=== PATIENT | female | born 1940 | race Caucasian/White ===

== ENCOUNTER 2017-04-16 16:30 | Emergency (ER) | payer MEDICARE, BC ==
--- NOTE | 2017-04-16 17:09 | EDM.PDOC ---
ED HPI GENERAL MEDICAL PROBLEM - General Chief Complaint: General Stated Complaint: Nose Bleed Time Seen by Provider: 04/16/17 16:55 Source of Information: Reports: Patient History Limitations: Reports: No Limitations - History of Present Illness INITIAL COMMENTS - FREE TEXT/NARRATIVE: Patient is a 76-year-old female who presents to the emergency department today from the retirement with a complaint of nose bleeding. 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 Patient denies any trauma, chest pain, shortness of breath, headache, or fever. Onset: Today Onset Date: 04/16/17 Duration: Hour(s): Location: Reports: Face Severity: Mild Improves with: Reports: None Worsens with: Reports: None Context: Denies: Trauma Associated Symptoms: Reports: No Other Symptoms - Related Data Allergies Allergy/AdvReac Type Severity Reaction Status Date / Time metformin Allergy Cannot Verified 04/16/17 16:54 Remember perfume Allergy Cannot Verified 04/16/17 16:54 Remember smoke Allergy Cannot Uncoded 04/16/17 16:54 Remember ED ROS GENERAL - Review of Systems Review Of Systems: ROS reveals no pertinent complaints other than HPI. Constitutional: Reports: No Symptoms HEENT: Reports: Nosebleed Respiratory: Reports: No Symptoms Cardiovascular: Reports: No Symptoms Endocrine: Reports: No Symptoms GI/Abdominal: Reports: No Symptoms : Reports: No Symptoms Musculoskeletal: Reports: No Symptoms Skin: Reports: No Symptoms Neurological: Reports: No Symptoms Psychiatric: Reports: No Symptoms Hematologic/Lymphatic: Reports: No Symptoms Immunologic: Reports: No Symptoms ED EXAM, GENERAL - Physical Exam Exam: See Below Exam Limited By: No Limitations General Appearance: Alert, WD/WN, No Apparent Distress Eye Exam: Bilateral Eye: Normal Inspection Nose: Other (Active bleeding from right nare, anterior). No: Nasal Deformity Throat/Mouth: Normal Inspection Head: Atraumatic, Normocephalic Neck: Normal Inspection, Supple, Non-Tender Respiratory/Chest: No Respiratory Distress, Lungs Clear Neurological: Alert, Oriented, Normal Cognition Psychiatric: Normal Affect, Normal Mood Skin Exam: Warm, Dry, Intact, Normal Color, No Rash Lymphatic: No Adenopathy Course - Vital Signs Last Recorded V/S: Last Vital Signs Temp 98.9 F 04/16/17 16:49 Pulse 63 04/16/17 16:49 Resp 18 04/16/17 16:49 BP 123/54 L 04/16/17 16:49 Pulse Ox 98 04/16/17 16:49 - Re-Assessments/Exams Free Text/Narrative Re-Assessment/Exam: 04/16/17 17:11 Patient afebrile, nontoxic appearing. Vital signs stable. Hemostasis obtained with Afrin and non-petroleum jelly cotton ball application. Departure - Departure Time of Disposition: 17:13 Disposition: Home, Self-Care 01 Condition: Good Clinical Impression: Epistaxis not due to trauma - Discharge Information Instructions: Nosebleed, [id number] Referrals: Araceli Omalley MD [Primary Care Provider] - Additional Instructions: Follow-up with PCP in one to 2 days. Return to emergency department sooner if symptoms continue. - Assessment/Plan Assessment:: Epistaxis Plan: Follow-up with PCP
[2017-04-16] MEDS ORDERED: Oxymetazoline 0.05% Nasal Spray 15 ML Bottle NAS ONE (17:48)
== END 2017-04-16 17:30 | disposition home or self-care (01) ==
LOC: KA.ED 16:30
DX: R04.0 Epistaxis (principal); Z88.8 Allergy status to other drugs, medicaments and biological substances; Z91.09 Other allergy status, other than to drugs and biological substances; Z91.048 Other nonmedicinal substance allergy status
CPT/HCPCS: 30901; 99283

== ENCOUNTER 2017-07-31 15:42 | Inpatient (IN) | payer MEDICARE, BC ==
[2017-07-31] MEDS ORDERED: Sodium Chloride 0.9% 5 ML Syringe FLUSH PRN (15:55)
[2017-07-31] MEDS ORDERED: Potassium Bicarbonate/Potassium Chloride 25 MEQ Tab.Eff PO ONE ×2 (17:30→22:00)
[2017-07-31] MEDS: Sodium Chloride 0.9% with KCl 1,000 ML IV SCH (19:19)
[2017-07-31] MEDS ORDERED: Insulin Aspart 100 Units/ML 3 ML Pen SUBCUT ONE (21:05)
[2017-07-31] MEDS ORDERED: Insulin Detemir 100 Units/ML 3 ML Pen SUBCUT ONE (21:06)
[2017-08-01 08:19] LABS: CHLORIDE,CL 117 mmol/L (98-115); SODIUM,NA 146 mmol/L (136-145)
[2017-08-01] MEDS: Sodium Chloride 0.9% with KCl 1,000 ML IV SCH (09:02)
[2017-08-01] MEDS ORDERED: Acetaminophen 325 MG Tab PO PRN (09:47)
[2017-08-01] MEDS ORDERED: Atropine/Diphenoxylate 0.025-2.5 MG Tab PO PRN (09:47)
[2017-08-01] MEDS ORDERED: Loperamide 2 MG Cap PO PRN (10:00)
[2017-08-01] MEDS ORDERED: Nitroglycerin 0.4 MG Tab.SL SL SCH (10:00)
[2017-08-01] MEDS ORDERED: Sodium Chloride 0.9% with KCl 1,000 ML IV SCH (10:00)
--- NOTE | 2017-08-01 10:56 | PCM.PN ---
- General Info Date of Service: 08/01/17 Admission Dx/Problem (Free Text): This patient was admitted primarily because of diarrhea weakness and hypokalemia. Functional Status: Reports: Tolerating Diet - Patient Data Vitals - Most Recent: Last Vital Signs Temp 99.0 F 08/01/17 07:00 Pulse 68 08/01/17 07:00 Resp 16 08/01/17 07:00 BP 147/59 H 08/01/17 07:00 Pulse Ox 98 08/01/17 07:00 Weight - Most Recent: 137 lb 1.6 oz I&O - Last 24 Hours: Intake & Output 07/31/17 08/01/17 08/01/17 22:59 06:59 14:59 Intake Total 917 1419 Output Total 500 500 Balance 417 919 Lab Results Last 24 Hours: Laboratory Results - last 24 hr 07/31/17 07/31/17 08/01/17 Range/Units 17:54 20:52 07:20 Sodium 146 H (136-145) mmol/L Potassium 3.3 (3.3-5.3) mmol/L Chloride 117 H (98-115) mmol/L Carbon Dioxide 15.4 L (21.0-32.0) mmol/L BUN 38 H (6-25) mg/dL Creatinine 0.80 (0.51-1.17) mg/dL Est Cr Clr Drug Dosing 50.85 mL/min Estimated GFR (MDRD) > 60 mL/min Glucose 132 H (70-110) mg/dL POC Glucose 306 H 460 H (74-106) mg/dl Calcium 7.6 L (8.7-10.3) mg/dL 08/01/17 Range/Units 07:40 Sodium (136-145) mmol/L Potassium (3.3-5.3) mmol/L Chloride (98-115) mmol/L Carbon Dioxide (21.0-32.0) mmol/L BUN (6-25) mg/dL Creatinine (0.51-1.17) mg/dL Est Cr Clr Drug Dosing mL/min Estimated GFR (MDRD) mL/min Glucose (70-110) mg/dL POC Glucose 131 H (74-106) mg/dl Calcium (8.7-10.3) mg/dL Med Orders - Current: Current Medications Acetaminophen (Tylenol) 650 mg PO Q6H PRN PRN Reason: Pain Aspirin (Halfprin) 81 mg PO DAILY [facility] Atorvastatin Calcium (Lipitor) 40 mg PO DAILY@1900 [facility] Cholecalciferol (Vitamin D3) 2,000 units PO DAILY [facility] Clopidogrel Bisulfate (Plavix) 75 mg PO DAILY [facility] Diphenoxylate HCl/Atropine (Lomotil 0.025-2.5 Mg) 1 tab PO QID PRN PRN Reason: Diarrhea Famotidine (Pepcid) 20 mg PO DAILY [facility] Gabapentin (Neurontin) 300 mg PO TIDMEALS [facility] Potassium Chloride/Sodium Chloride (Normal Saline With 40 Meq Kcl) 1,000 mls @ 50 mls/hr IV ASDIRECTED [facility] Insulin Aspart (Novolog) 0 unit SUBCUT ASDIRECTED [facility] Insulin Detemir (Levemir) 10 unit SUBCUT BID [facility] Loperamide HCl (Imodium) 2 mg PO ASDIRECTED PRN PRN Reason: diarrhea Multivitamins/Minerals (Centrum) 1 tab PO DAILY [facility] Nitroglycerin (Nitrostat) 0.4 mg SL ASDIRECTED [facility] Dulaglutide [ (Trulicity] 0.75 Mg) 0.75 each SUBCUT Th [facility] Risperidone (Risperidal) 0.25 mg PO BID [facility] Sertraline HCl (Zoloft) 100 mg PO DAILY [facility] Sodium Chloride (Syrex Flush) 5 ml FLUSH Q8HR PRN PRN Reason: Keep Vein Open Zinc Sulfate (Zincate) 220 mg PO DAILY [facility] Discontinued Medications Potassium Chloride/Sodium Chloride (Normal Saline With 40 Meq Kcl) 1,000 mls @ 75 mls/hr IV ASDIRECTED [facility] Last Admin: 08/01/17 09:02 Dose: 75 mls/hr Insulin Aspart (Novolog) 8 unit SUBCUT ONETIME ONE Stop: 07/31/17 21:06 Last Admin: 07/31/17 21:19 Dose: 8 units Insulin Detemir (Levemir) 10 unit SUBCUT ONETIME ONE Stop: 07/31/17 21:07 Last Admin: 07/31/17 21:20 Dose: 10 units Potassium Bicarb/Potassium Chloride (Potassium Chloride, Effervescent) 25 meq PO ONETIME ONE Stop: 07/31/17 17:31 Last Admin: 07/31/17 19:18 Dose: 25 meq Potassium Bicarb/Potassium Chloride (Potassium Chloride, Effervescent) 25 meq PO ONETIME ONE Stop: 07/31/17 22:01 Last Admin: 07/31/17 21:15 Dose: 25 meq - Problem List Review Problem List Initiated/Reviewed/Updated: Yes - My Orders Last 24 Hours: My Active Orders 08/01/17 09:45 Insulin Detemir [Levemir] 10 unit SUBCUT BID 08/01/17 09:47 Acetaminophen [Tylenol] 650 mg PO Q6H PRN Atropine/Diphenoxylate [Lomotil 0.025-2.5 MG] 1 tab PO QID PRN 08/01/17 10:00 Insulin Aspart [NovoLOG] 0 unit SUBCUT ASDIRECTED Loperamide [Imodium] 2 mg PO ASDIRECTED PRN Nitroglycerin [Nitrostat] 0.4 mg SL ASDIRECTED Sodium Chloride 0.9% with KCl [Normal Saline with 40 mEq KCl] 1,000 ml IV ASDIRECTED 08/01/17 12:00 Gabapentin [Neurontin] 300 mg PO TIDMEALS 08/01/17 19:00 atorvaSTATin [Lipitor] 40 mg PO DAILY@1900 08/01/17 21:00 risperiDONE [RisperiDAL] 0.25 mg PO BID 08/02/17 05:15 COMPREHENSIVE METABOLIC PN,CMP [CHEM] AM 08/02/17 09:00 Aspirin [Halfprin] 81 mg PO DAILY Cholecalciferol (Vitamin D3) [Vitamin D3] 2,000 units PO DAILY Clopidogrel [Plavix] 75 mg PO DAILY FA/Lycopene/Lut/MV,Ca,Iron,Min [Centrum] 1 tab PO DAILY Famotidine [Pepcid] 20 mg PO DAILY Sertraline [Zoloft] 100 mg PO DAILY Zinc Sulfate [Zincate] 220 mg PO DAILY 08/07/17 09:00 Patient's Own Medication [Ptom] 0.75 each SUBCUT Th - Assessment Assessment:: This patient was seen today for follow-up. Yesterday she was admitted because of chronic and acute diarrhea and hypokalemia. Her potassium yesterday was 3.1. Today's 3.3. Serum sodium is still high at 146. Intake output has been documented. Intake was 2336 output was 1000 mL. Her BUN is still high at 58. Creatinine is normal at 0.8. She has definitely improved. Will continue with the current management. We will decrease her IV fluids to 50 mL an hour. Diabetes: We have changed her insulins and 211 Suad 10 units twice a day. Also kept her on the sliding scale low-dose. Blood sugar this morning was 131. We'll keep a close eye on this situation. Intake & Output 07/30/17 07/31/17 08/01/17 08/02/17 06:59 06:59 06:59 06:59 Intake Total 2336 Output Total 1000 Balance 1336 Laboratory Results - last 24 hr 07/31/17 07/31/17 08/01/17 Range/Units 17:54 20:52 07:20 Sodium 146 H (136-145) mmol/L Potassium 3.3 (3.3-5.3) mmol/L Chloride 117 H (98-115) mmol/L Carbon Dioxide 15.4 L (21.0-32.0) mmol/L BUN 38 H (6-25) mg/dL Creatinine 0.80 (0.51-1.17) mg/dL Est Cr Clr Drug Dosing 50.85 mL/min Estimated GFR (MDRD) > 60 mL/min Glucose 132 H (70-110) mg/dL POC Glucose 306 H 460 H (74-106) mg/dl Calcium 7.6 L (8.7-10.3) mg/dL 08/01/17 Range/Units 07:40 Sodium (136-145) mmol/L Potassium (3.3-5.3) mmol/L Chloride (98-115) mmol/L Carbon Dioxide (21.0-32.0) mmol/L BUN (6-25) mg/dL Creatinine (0.51-1.17) mg/dL Est Cr Clr Drug Dosing mL/min Estimated GFR (MDRD) mL/min Glucose (70-110) mg/dL POC Glucose 131 H (74-106) mg/dl Calcium (8.7-10.3) mg/dL Medications: Acetaminophen (Tylenol) 650 mg PO Q6H PRN PRN Reason: Pain Aspirin (Halfprin) 81 mg PO DAILY [facility] Atorvastatin Calcium (Lipitor) 40 mg PO DAILY@1900 [facility] Cholecalciferol (Vitamin D3) 2,000 units PO DAILY [facility] Clopidogrel Bisulfate (Plavix) 75 mg PO DAILY [facility] Diphenoxylate HCl/Atropine (Lomotil 0.025-2.5 Mg) 1 tab PO QID PRN PRN Reason: Diarrhea Famotidine (Pepcid) 20 mg PO DAILY [facility] Gabapentin (Neurontin) 300 mg PO TIDMEALS [facility] Potassium Chloride/Sodium Chloride (Normal Saline With 40 Meq Kcl) 1,000 mls @ 50 mls/hr IV ASDIRECTED [facility] Insulin Aspart (Novolog) 0 unit SUBCUT ASDIRECTED [facility] Insulin Detemir (Levemir) 10 unit SUBCUT BID [facility] Loperamide HCl (Imodium) 2 mg PO ASDIRECTED PRN PRN Reason: diarrhea Multivitamins/Minerals (Centrum) 1 tab PO DAILY [facility] Nitroglycerin (Nitrostat) 0.4 mg SL ASDIRECTED [facility] Dulaglutide [ (Trulicity] 0.75 Mg) 0.75 each SUBCUT Th [facility] Risperidone (Risperidal) 0.25 mg PO BID [facility] Sertraline HCl (Zoloft) 100 mg PO DAILY [facility] Sodium Chloride (Syrex Flush) 5 ml FLUSH Q8HR PRN PRN Reason: Keep Vein Open Zinc Sulfate (Zincate) 220 mg PO DAILY [facility] Discontinued Medications Potassium Chloride/Sodium Chloride (Normal Saline With 40 Meq Kcl) 1,000 mls @ 75 mls/hr IV ASDIRECTED [facility] Last Admin: 08/01/17 09:02 Dose: 75 mls/hr Infusions/Titrations Document 08/01/17 09:02 MLE (Rec: 08/01/17 09:02 MLE [id number]) Dosing IV Rate 75 Increase/Decrease Started/Running Cummulative Dose Not Applicable Intake Container Volume 1,000 Total Intake (Rx) 1,000 Volume Adjustment/Waste 0 Infusion: 08/01/17 08:39 Dose: 75 mls/hr Infusions/Titrations Document 08/01/17 08:39 MLE (Rec: 08/01/17 09:02 MLE [id number]) Dosing IV Rate 75 Increase/Decrease Infused Cummulative Dose Not Applicable Intake IV Intake 1,000 Cumulative Intake 1,000 Container Volume 0 Total Intake (Rx) 1,000 Volume Adjustment/Waste 0 Admin: 07/31/17 19:19 Dose: 75 mls/hr Infusions/Titrations Document 07/31/17 19:19 SMV (Rec: 07/31/17 19:19 SMV [id number]) Dosing IV Rate 75 Increase/Decrease Started Cummulative Dose Not Applicable Intake Container Volume 1,000 Volume Adjustment/Waste 0 Insulin Aspart (Novolog) 8 unit SUBCUT ONETIME ONE Stop: 07/31/17 21:06 Last Admin: 07/31/17 21:19 Dose: 8 units MAR SQ Injection Site Document 07/31/17 21:19 AI (Rec: 07/31/17 21:20 AI [id number]) MAR Subcutaneous Injection Site Start Date 07/31/17 Start Time 21:20 End Date 07/31/17 End Time 21:20 Medication Injection Site Left Abdomen Vital Signs Temp 99.0 F 08/01/17 07:00 Pulse 68 08/01/17 07:00 Resp 16 08/01/17 07:00 BP 147/59 H 08/01/17 07:00 Pulse Ox 98 08/01/17 07:00 Intake & Output 07/31/17 08/01/17 08/01/17 22:59 06:59 14:59 Intake Total 917 1419 Output Total 500 500 Balance 417 919 Intake: Intake, Oral Amount 770 800 Oral Fluids 770 800 Intake, IV Amount 147 619 Normal Saline with 40 mEq 147 619 KCl 1,000 ML @ 75 mls/hr IV ASDIRECTED [facility] Rx#: [id number] Output: Output, Catheter Amount 500 500 Perdomo 500 500 Other: Dinner Percent Consumed 25 HS Snack Percent Consumed 100 Total, Intake Amount 770 800 Total, Output Amount 500 500 Insulin Detemir (Levemir) 10 unit SUBCUT ONETIME ONE Stop: 07/31/17 21:07 Last Admin: 07/31/17 21:20 Dose: 10 units MAR SQ Injection Site Document 07/31/17 21:20 AI (Rec: 07/31/17 21:21 AI [id number]) MAR Subcutaneous Injection Site Start Date 07/31/17 Start Time 21:20 End Date 07/31/17 End Time 21:20 Medication Injection Site Left Abdomen Potassium Bicarb/Potassium Chloride (Potassium Chloride, Effervescent) 25 meq PO ONETIME ONE Stop: 07/31/17 17:31 Last Admin: 07/31/17 19:18 Dose: 25 meq Potassium Bicarb/Potassium Chloride (Potassium Chloride, Effervescent) 25 meq PO ONETIME ONE Stop: 07/31/17 22:01 Last Admin: 07/31/17 21:15 Dose: 25 meq
[2017-08-01] MEDS: Insulin Detemir 100 Units/ML 3 ML Pen SUBCUT SCH ×2 (12:04→20:34)
[2017-08-01] MEDS: Insulin Aspart 100 Units/ML 3 ML Pen SUBCUT SCH ×2 (12:09→18:04)
[2017-08-01] MEDS: Gabapentin 300 MG Cap PO SCH ×2 (12:33→18:03)
[2017-08-01] MEDS: atorvaSTATin 40 MG Tab PO SCH (19:39)
[2017-08-01] MEDS: risperiDONE 0.25 MG Tab PO SCH (20:33)
[2017-08-02 08:10] LABS: CHLORIDE,CL 117 mmol/L (98-115); SODIUM,NA 145 mmol/L (136-145)
[2017-08-02] MEDS ORDERED: Zinc Sulfate 220 MG Cap PO SCH (09:00)
[2017-08-02] MEDS: Multivitamins with Minerals/Iron/Folic Acid/Lycopene Tab PO SCH (09:18)
[2017-08-02] MEDS: Gabapentin 300 MG Cap PO SCH ×3 (09:18→17:52)
[2017-08-02] MEDS: Aspirin 81 MG Tab.EC PO SCH (09:19)
[2017-08-02] MEDS: Insulin Detemir 100 Units/ML 3 ML Pen SUBCUT SCH ×2 (09:19→20:54)
[2017-08-02] MEDS: Sertraline 50 MG Tab PO SCH (09:20)
[2017-08-02] MEDS: Cholecalciferol (Vitamin D3) 1,000 Unit Tab PO SCH (09:20)
[2017-08-02] MEDS: Clopidogrel 75 MG Tab PO SCH (09:20)
[2017-08-02] MEDS: risperiDONE 0.25 MG Tab PO SCH ×2 (09:20→20:53)
[2017-08-02] MEDS: Famotidine 20 MG Tab PO SCH (09:20)
[2017-08-02] MEDS: Zinc Sulfate 220 MG Cap PO SCH (09:27)
--- NOTE | 2017-08-02 12:00 | PCM.PN ---
- General Info Date of Service: 08/02/17 Subjective Update: Ms. Mancia reports no new concerns today. States she is having some mild abdominal pain, but not reproducible on exam. States she is hungry for lunch. Due to dementia, unable to obtain much other reliable information. Nursing reports no diarrhea in the past 24 hours and that she has been tolerating po intake well. - Patient Data Vitals - Most Recent: Last Vital Signs Temp 36.9 C 08/02/17 11:00 Pulse 68 08/02/17 11:00 Resp 16 08/02/17 11:00 BP 165/70 H 08/02/17 11:00 Pulse Ox 92 L 08/02/17 11:00 Weight - Most Recent: 62.188 kg I&O - Last 24 Hours: Intake & Output 08/01/17 08/02/17 08/02/17 22:59 06:59 14:59 Intake Total 963 555 Output Total 600 1100 Balance 363 -545 Lab Results Last 24 Hours: Laboratory Results - last 24 hr 08/01/17 08/01/17 08/02/17 Range/Units 17:36 20:32 07:10 Sodium 145 (136-145) mmol/L Potassium 3.9 (3.3-5.3) mmol/L Chloride 117 H (98-115) mmol/L Carbon Dioxide 19.0 L (21.0-32.0) mmol/L BUN 25 (6-25) mg/dL Creatinine 0.68 (0.51-1.17) mg/dL Est Cr Clr Drug Dosing 59.83 mL/min Estimated GFR (MDRD) > 60 mL/min Glucose 49 L (70-110) mg/dL POC Glucose 165 H 249 H (74-106) mg/dl Calcium 7.4 L (8.7-10.3) mg/dL Total Bilirubin 0.3 (0.2-1.0) mg/dL AST 22 (15-37) U/L ALT 39 (12-78) U/L Alkaline Phosphatase 68 (46-116) IU/L Total Protein 5.2 L (6.4-8.2) g/dL Albumin 1.83 L (3.00-4.80) g/dL 08/02/17 08/02/17 Range/Units 08:19 08:59 Sodium (136-145) mmol/L Potassium (3.3-5.3) mmol/L Chloride (98-115) mmol/L Carbon Dioxide (21.0-32.0) mmol/L BUN (6-25) mg/dL Creatinine (0.51-1.17) mg/dL Est Cr Clr Drug Dosing mL/min Estimated GFR (MDRD) mL/min Glucose (70-110) mg/dL POC Glucose 48 L 97 (74-106) mg/dl Calcium (8.7-10.3) mg/dL Total Bilirubin (0.2-1.0) mg/dL AST (15-37) U/L ALT (12-78) U/L Alkaline Phosphatase (46-116) IU/L Total Protein (6.4-8.2) g/dL Albumin (3.00-4.80) g/dL Med Orders - Current: Current Medications Acetaminophen (Tylenol) 650 mg PO Q6H PRN PRN Reason: Pain Aspirin (Halfprin) 81 mg PO DAILY [facility] Last Admin: 08/02/17 09:19 Dose: 81 mg Atorvastatin Calcium (Lipitor) 40 mg PO DAILY@1900 [facility] Last Admin: 08/01/17 19:39 Dose: 40 mg Cholecalciferol (Vitamin D3) 2,000 units PO DAILY [facility] Last Admin: 08/02/17 09:20 Dose: 2,000 units Clopidogrel Bisulfate (Plavix) 75 mg PO DAILY [facility] Last Admin: 08/02/17 09:20 Dose: 75 mg Diphenoxylate HCl/Atropine (Lomotil 0.025-2.5 Mg) 1 tab PO QID PRN PRN Reason: Diarrhea Famotidine (Pepcid) 20 mg PO DAILY [facility] Last Admin: 08/02/17 09:20 Dose: 20 mg Gabapentin (Neurontin) 300 mg PO TIDMEALS [facility] Last Admin: 08/02/17 09:18 Dose: 300 mg Insulin Aspart (Novolog) 0 unit SUBCUT ASDIRECTED [facility] Last Admin: 08/01/17 18:04 Dose: 1 units Insulin Detemir (Levemir) 7 unit SUBCUT BID [facility] Loperamide HCl (Imodium) 2 mg PO ASDIRECTED PRN PRN Reason: diarrhea Multivitamins/Minerals (Centrum) 1 tab PO DAILY [facility] Last Admin: 08/02/17 09:18 Dose: 1 tab Nitroglycerin (Nitrostat) 0.4 mg SL ASDIRECTED [facility] Dulaglutide [ (Trulicity] 0.75 Mg) 0.75 each SUBCUT Th [facility] Zinc Sulfate 220 Mg (Cap) 220 each PO DAILY [facility] Last Admin: 08/02/17 09:27 Dose: Not Given Risperidone (Risperidal) 0.25 mg PO BID [facility] Last Admin: 08/02/17 09:20 Dose: 0.25 mg Sertraline HCl (Zoloft) 100 mg PO DAILY [facility] Last Admin: 08/02/17 09:20 Dose: 100 mg Sodium Chloride (Syrex Flush) 5 ml FLUSH Q8HR PRN PRN Reason: Keep Vein Open Discontinued Medications Potassium Chloride/Sodium Chloride (Normal Saline With 40 Meq Kcl) 1,000 mls @ 75 mls/hr IV ASDIRECTED [facility] Last Admin: 08/01/17 09:02 Dose: 75 mls/hr Potassium Chloride/Sodium Chloride (Normal Saline With 40 Meq Kcl) 1,000 mls @ 50 mls/hr IV ASDIRECTED [facility] Last Admin: 08/02/17 03:40 Dose: 50 mls/hr Insulin Aspart (Novolog) 8 unit SUBCUT ONETIME ONE Stop: 07/31/17 21:06 Last Admin: 07/31/17 21:19 Dose: 8 units Insulin Detemir (Levemir) 10 unit SUBCUT ONETIME ONE Stop: 07/31/17 21:07 Last Admin: 07/31/17 21:20 Dose: 10 units Insulin Detemir (Levemir) 10 unit SUBCUT BID [facility] Last Admin: 08/02/17 09:19 Dose: 10 units Potassium Bicarb/Potassium Chloride (Potassium Chloride, Effervescent) 25 meq PO ONETIME ONE Stop: 07/31/17 17:31 Last Admin: 07/31/17 19:18 Dose: 25 meq Potassium Bicarb/Potassium Chloride (Potassium Chloride, Effervescent) 25 meq PO ONETIME ONE Stop: 07/31/17 22:01 Last Admin: 07/31/17 21:15 Dose: 25 meq Zinc Sulfate (Zincate) 220 mg PO DAILY [facility] - Exam Physical Findings Comments:: GENERAL: Well-appearing elderly white female lying in hospital bed in no acute distress. HEENT: Normocephalic, atraumatic. Conjunctiva clear. Nares patent without discharge. Mucous membranes moist. NECK: Supple, no masses. CV: Regular rate and rhythm, no murmurs, rubs, or gallops. 2+ radial pulses. PULMONARY: Normal effort, clear to auscultation bilaterally, no wheezes, rales, or rhonchi. ABDOMEN: Positive bowel sounds, soft, nontender, nondistended, no guarding/ rigidity/rebound. EXTREMITIES: Left BKA well healed stump. No edema, cyanosis, or clubbing. MUSCULOSKELETAL: Moves all extremities well. NEUROLOGICAL: No obvious deficits. DERMATOLOGIC: No rashes or suspicious lesions in exposed areas. PSYCHIATRIC: Alert, oriented only to person, interactive, pleasant, confused. - Problem List Review Problem List Initiated/Reviewed/Updated: Yes - My Orders Last 24 Hours: My Active Orders 08/02/17 21:00 Insulin Detemir [Levemir] 7 unit SUBCUT BID 08/03/17 05:11 BASIC METABOLIC PANEL,BMP [CHEM] AM - Plan Plan:: 76yoF with history of DMT2 and chronic diarrhea who was evaluated at [facility] with acute ongoing diarrhea and lethargy. Hypokalemia and hypernatremia noted, for which she was admitted for close monitoring and IVF rehydration. # Hyperkalemia, resolved # Hypernatremia, improved # Chronic diarrhea, currently resolved # DMT2 She has had interval improvement in clinical and laboratory status. Diarrhea has resolved and intake has improved. Due to hyperglycemia, her insulin Levemir was increased from 7 to 10 units BID; she then had a BG of 49 this morning which improved with juice. - Stop IVF and encourage po intake - Decrease Levemir back to outpatient dosing of 7 units BID; continue sliding scale NovoLog and liraglutide as well as statin and ASA - Continue Lomotil and loperamide prn - Recheck BMP tomorrow Chronic, stable conditions: # Dementia with behavioral disturbance: Risperdone, sertraline. # GERD: Famotidine. 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 # Vitamin D deficiency: Vitamin D. Hospitalization details: # FEN: Stop IVF. Electrolytes as above. Carbohydrate controlled diet. # PPX: SCDs while in bed. # Code status: FULL. # Disposition: Continue on inpatient status with plan to discharge back to [facility] tomorrow if ongoing clinical improvement.
[2017-08-02] MEDS: atorvaSTATin 40 MG Tab PO SCH (18:02)
[2017-08-02] MEDS: Insulin Aspart 100 Units/ML 3 ML Pen SUBCUT SCH (21:04)
[2017-08-03] MEDS: Gabapentin 300 MG Cap PO SCH (08:14)
[2017-08-03] MEDS: Famotidine 20 MG Tab PO SCH (08:14)
[2017-08-03] MEDS: Multivitamins with Minerals/Iron/Folic Acid/Lycopene Tab PO SCH (08:14)
[2017-08-03] MEDS: Aspirin 81 MG Tab.EC PO SCH (08:14)
[2017-08-03] MEDS: Clopidogrel 75 MG Tab PO SCH (08:14)
[2017-08-03] MEDS: Insulin Detemir 100 Units/ML 3 ML Pen SUBCUT SCH (08:14)
[2017-08-03] MEDS: risperiDONE 0.25 MG Tab PO SCH (08:15)
[2017-08-03] MEDS: Cholecalciferol (Vitamin D3) 1,000 Unit Tab PO SCH (08:15)
[2017-08-03] MEDS: Sertraline 50 MG Tab PO SCH (08:15)
[2017-08-03 08:59] LABS: CHLORIDE,CL 109 mmol/L (98-115); SODIUM,NA 137 mmol/L (136-145)
[2017-08-03] MEDS: Zinc Sulfate 220 MG Cap PO SCH (09:16)
--- NOTE | 2017-08-03 10:41 | PCM.DCSUM1 ---
Discharge Summary - Hospital Course Free Text/Narrative:: Date of admission: 07/31/17 Date of discharge: 08/03/17 Admission diagnoses: 1. Hyperkalemia 2. Hypernatremia 3. Chronic diarrhea 4. DMT2 5. Dementia with behavioral disturbance 6. GERD 7. Neuropathy 8. Vitamin D deficiency Discharge diagnoses: 1. Hyperkalemia, resolved 2. Hypernatremia, resolved 3. Chronic diarrhea 4. DMT2 5. Dementia with behavioral disturbance 6. GERD 7. Neuropathy 8. Vitamin D deficiency Consultations: None Procedures: None Hospital course: 76yoF with history of DMT2 and chronic diarrhea who was evaluated at [facility] with acute worsening of chronic diarrhea and lethargy. Hypokalemia and hypernatremia noted, for which she was admitted for close monitoring and IVF rehydration. She had subsequent improvement in clinical and laboratory status and was able to maintain normal electrolytes following IVF discontinuation. Diarrhea resolved. Due to hyperglycemia, her insulin Levemir was increased from 7 to 10 units BID, but she then had a BG of 49 the following morning so she was changed to her outpatient dosing again without subsequent episodes of hypoglycemia. She was continued on other medications for chronic medical conditions. She was deemed ready for discharge back to [facility]. She was discharged on prior home medications. She will follow-up with Dr. Araceli Omalley or TRISTAN Camara, on the next long-term rounds. - Discharge Data Discharge Date: 08/03/17 Discharge Disposition: DC/Tfer to SNF 03 Condition: Good - Discharge Plan Home Medications: Home Meds Acetaminophen [Tylenol] 650 mg PO Q6H PRN 07/31/17 [History] Aspirin [Adult Low Dose Aspirin EC] 81 mg PO DAILY 07/31/17 [History] Bisacodyl 10 mg RC DAILY PRN 07/31/17 [History] Cholecalciferol (Vitamin D3) [Vitamin D3] 2,000 units PO DAILY 07/31/17 [History ] Clopidogrel [Plavix] 75 mg PO DAILY 07/31/17 [History] Diphenoxylate HCl/Atropine [Lomotil] 1 tab PO QID PRN 07/31/17 [History] Dulaglutide [Trulicity] 0.75 mg SUBCUT WEEKLY 07/31/17 [History] Famotidine [Pepcid] 20 mg PO DAILY 07/31/17 [History] Gabapentin [Neurontin] 300 mg PO TIDMEALS 07/31/17 [History] Insulin Aspart [NovoLOG] 1 unit SUBCUT ASDIRECTED 07/31/17 [History] Insulin Detemir [Levemir] 7 unit SUBCUT ASDIRECTED@1800 07/31/17 [History] Loperamide [Imodium AD] 2 mg PO ASDIRECTED 07/31/17 [History] Multivitamin/Iron/Folic Acid [Century Tablet] 1 each PO DAILY 07/31/17 [History] Nitroglycerin [Nitrostat] 0.4 mg SL ASDIRECTED 07/31/17 [History] Sertraline [Zoloft] 100 mg PO DAILY 07/31/17 [History] Zinc Sulfate 220 mg PO DAILY 07/31/17 [History] atorvaSTATin [Lipitor] 40 mg PO DAILY@1900 07/31/17 [History] risperiDONE [RisperiDAL] 0.25 mg PO BID 07/31/17 [History] - General Info Subjective Update: Ms. Mancia reports no concerns today and states that she feels great. Eating and drinking without difficulty. Due to dementia, unable to obtain much other reliable information. Nursing reports no diarrhea in the past 24 hours and that she has been tolerating po intake well. - Patient Data Vitals - Most Recent: Last Vital Signs Temp 37.2 C 08/03/17 06:00 Pulse 62 08/03/17 06:00 Resp 18 08/03/17 06:00 BP 155/65 H 08/03/17 06:00 Pulse Ox 98 08/03/17 06:00 Weight - Most Recent: 62.188 kg I&O - Last 24 hours: Intake & Output 08/02/17 08/03/17 08/03/17 22:59 06:59 14:59 Intake Total 800 820 Output Total 600 1200 Balance 200 -380 Lab Results - Last 24 hrs: Laboratory Results - last 24 hr 08/02/17 08/02/17 08/02/17 Range/Units 11:59 17:51 20:52 Sodium (136-145) mmol/L Potassium (3.3-5.3) mmol/L Chloride (98-115) mmol/L Carbon Dioxide (21.0-32.0) mmol/L BUN (6-25) mg/dL Creatinine (0.51-1.17) mg/dL Est Cr Clr Drug Dosing mL/min Estimated GFR (MDRD) mL/min Glucose (70-110) mg/dL POC Glucose 120 H 181 H 201 H (74-106) mg/dl Calcium (8.7-10.3) mg/dL 08/03/17 08/03/17 Range/Units 06:31 07:49 Sodium 137 (136-145) mmol/L Potassium 4.4 (3.3-5.3) mmol/L Chloride 109 (98-115) mmol/L Carbon Dioxide 21.9 (21.0-32.0) mmol/L BUN 19 (6-25) mg/dL Creatinine 0.69 (0.51-1.17) mg/dL Est Cr Clr Drug Dosing 58.96 mL/min Estimated GFR (MDRD) > 60 mL/min Glucose 162 H (70-110) mg/dL POC Glucose 123 H (74-106) mg/dl Calcium 7.6 L (8.7-10.3) mg/dL Med Orders - Current: Current Medications Acetaminophen (Tylenol) 650 mg PO Q6H PRN PRN Reason: Pain Aspirin (Halfprin) 81 mg PO DAILY [facility] Last Admin: 08/03/17 08:14 Dose: 81 mg Atorvastatin Calcium (Lipitor) 40 mg PO DAILY@1900 [facility] Last Admin: 08/02/17 18:02 Dose: 40 mg Cholecalciferol (Vitamin D3) 2,000 units PO DAILY [facility] Last Admin: 08/03/17 08:15 Dose: 2,000 units Clopidogrel Bisulfate (Plavix) 75 mg PO DAILY [facility] Last Admin: 08/03/17 08:14 Dose: 75 mg Diphenoxylate HCl/Atropine (Lomotil 0.025-2.5 Mg) 1 tab PO QID PRN PRN Reason: Diarrhea Famotidine (Pepcid) 20 mg PO DAILY [facility] Last Admin: 08/03/17 08:14 Dose: 20 mg Gabapentin (Neurontin) 300 mg PO TIDMEALS [facility] Last Admin: 08/03/17 08:14 Dose: 300 mg Insulin Aspart (Novolog) 0 unit SUBCUT ASDIRECTED [facility] Last Admin: 08/02/17 21:04 Dose: 2 units Insulin Detemir (Levemir) 7 unit SUBCUT BID [facility] Last Admin: 08/03/17 08:14 Dose: 7 units Loperamide HCl (Imodium) 2 mg PO ASDIRECTED PRN PRN Reason: diarrhea Multivitamins/Minerals (Centrum) 1 tab PO DAILY [facility] Last Admin: 08/03/17 08:14 Dose: 1 tab Nitroglycerin (Nitrostat) 0.4 mg SL ASDIRECTED [facility] Dulaglutide [ (Trulicity] 0.75 Mg) 0.75 each SUBCUT Th [facility] Zinc Sulfate 220 Mg (Cap) 220 each PO DAILY [facility] Last Admin: 08/03/17 09:16 Dose: Not Given Risperidone (Risperidal) 0.25 mg PO BID [facility] Last Admin: 08/03/17 08:15 Dose: 0.25 mg Sertraline HCl (Zoloft) 100 mg PO DAILY [facility] Last Admin: 08/03/17 08:15 Dose: 100 mg Sodium Chloride (Syrex Flush) 5 ml FLUSH Q8HR PRN PRN Reason: Keep Vein Open Last Admin: 08/03/17 06:02 Dose: 5 ml Discontinued Medications Potassium Chloride/Sodium Chloride (Normal Saline With 40 Meq Kcl) 1,000 mls @ 75 mls/hr IV ASDIRECTED [facility] Last Admin: 08/01/17 09:02 Dose: 75 mls/hr Potassium Chloride/Sodium Chloride (Normal Saline With 40 Meq Kcl) 1,000 mls @ 50 mls/hr IV ASDIRECTED [facility] Last Admin: 08/02/17 03:40 Dose: 50 mls/hr Insulin Aspart (Novolog) 8 unit SUBCUT ONETIME ONE Stop: 07/31/17 21:06 Last Admin: 07/31/17 21:19 Dose: 8 units Insulin Detemir (Levemir) 10 unit SUBCUT ONETIME ONE Stop: 07/31/17 21:07 Last Admin: 07/31/17 21:20 Dose: 10 units Insulin Detemir (Levemir) 10 unit SUBCUT BID [facility] Last Admin: 08/02/17 09:19 Dose: 10 units Potassium Bicarb/Potassium Chloride (Potassium Chloride, Effervescent) 25 meq PO ONETIME ONE Stop: 07/31/17 17:31 Last Admin: 07/31/17 19:18 Dose: 25 meq Potassium Bicarb/Potassium Chloride (Potassium Chloride, Effervescent) 25 meq PO ONETIME ONE Stop: 07/31/17 22:01 Last Admin: 07/31/17 21:15 Dose: 25 meq Zinc Sulfate (Zincate) 220 mg PO DAILY [facility] - Exam Physical Findings Comments:: GENERAL: Well-appearing elderly white female lying in hospital bed in no acute distress. HEENT: Normocephalic, atraumatic. Conjunctiva clear. Nares patent without discharge. Mucous membranes moist. NECK: Supple, no masses. CV: Regular rate and rhythm, no murmurs, rubs, or gallops. 2+ radial pulses. PULMONARY: Normal effort, clear to auscultation bilaterally, no wheezes, rales, or rhonchi. ABDOMEN: Positive bowel sounds, soft, nontender, nondistended, no guarding/ rigidity/rebound. EXTREMITIES: Left BKA well healed stump with mid incision maceration without surrounding erythema. No edema, cyanosis, or clubbing. MUSCULOSKELETAL: Moves all extremities well. NEUROLOGICAL: No obvious deficits. DERMATOLOGIC: No rashes or suspicious lesions in exposed areas. PSYCHIATRIC: Alert, oriented only to person, interactive, pleasant, confused.
[2017-08-07] MEDS ORDERED: Dulaglutide [Trulicity] 0.75 MG SUBCUT SCH (09:00)
== END 2017-08-03 11:00 | DRG 641 ==
LOC: KA.MS 15:42
PROVIDERS: ADMIT Nurse Practitioner Family; ATTEND Family Medicine
DX: E87.5 Hyperkalemia (principal); F03.91 Unspecified dementia, unspecified severity, with behavioral disturbance; E87.0 Hyperosmolality and hypernatremia; R19.7 Diarrhea, unspecified; E11.9 Type 2 diabetes mellitus without complications; K21.9 Gastro-esophageal reflux disease without esophagitis; G62.9 Polyneuropathy, unspecified; E55.9 Vitamin D deficiency, unspecified; Z79.899 Other long term (current) drug therapy; Z79.4 Long term (current) use of insulin
CPT/HCPCS: 36415; 80048; 80053; 82962; 87070; 87205; A9270-GY; J1815-GY; J3480

== ENCOUNTER 2019-11-09 10:40 | Emergency (ER) | payer MEDICARE, BC ==
--- NOTE | 2019-11-09 10:59 | EDM.PDOC ---
ED HPI GENERAL MEDICAL PROBLEM - General Chief Complaint: Genitourinary Problem Stated Complaint: UROSEPSIS/HYPERKALEMIA Time Seen by Provider: 11/09/19 10:40 Source of Information: Reports: Patient, Assisted Records, Provider History Limitations: Reports: Other (Cognitive) - History of Present Illness INITIAL COMMENTS - FREE TEXT/NARRATIVE: Received report via Elodia Friedman provider for Juliana. States she had seen her last Friday on routine rounds with no major concerns. Later started experiencing loose stools, with abdominal irritation, with Patrick catheter, chronic use, being changed on Friday. Symptoms waxed and waned over the weekend and contact with Yaw Ness provider billing control clerk was made. He recommended if worsening condition or concerns continue, consult with the emergency department, otherwise recheck on Friday. Lab work was drawn on Friday with concerns of hemolyzation showing elevated renal function/acute injury, as well as hyper kalemia. Urine that was obtained was not valid due to no refrigeration for testing. Presents by ambulance today for evaluation of the above. Negative COVID 19 testing 28 October 2019 and has been per se sequestered at the facility since. She denies any problems and is blatantly refusing any blood draws or IV starts at this time. We have been in contact with Cassandra Cortes director report who formerly was director report at the [facility] and is conversing with her attempting to explain why a blood test is important, and get her permission for the draw. Onset: Gradual Duration: Day(s):, Intermittent Location: Reports: Abdomen, Other (No complaint today) Quality: Reports: Other Severity: Moderate Worsens with: Reports: None Context: Reports: Other (No exposures.) Associated Symptoms: Reports: No Other Symptoms - Related Data Allergies Allergy/AdvReac Type Severity Reaction Status Date / Time perfume Allergy Cannot Verified 11/09/19 11:47 Remember smoke Allergy Mild Cannot Uncoded 11/09/19 11:47 Remember Home Meds: Home Meds Acetaminophen [Tylenol] 650 mg PO Q6H PRN 07/31/17 [History] Bisacodyl 10 mg RC DAILY PRN 07/31/17 [History] Cholecalciferol (Vitamin D3) [Vitamin D3] 2,000 units PO QAM 07/31/17 [History] Nitroglycerin [Nitrostat] 0.4 mg SL ASDIRECTED PRN 07/31/17 [History] Furosemide [Lasix] 40 mg PO QAM 02/15/18 [History] Insulin Aspart [NovoLOG] 4 unit SUBCUT DAILY@1200 02/15/18 [History] Insulin Detemir [Levemir Flextouch] 8 unit SQ DAILY 02/15/18 [History] Lisinopril 2.5 mg PO QAM 02/15/18 [History] Potassium Chloride 10 meq PO QAM 02/15/18 [History] atorvaSTATin [Lipitor] 40 mg PO BEDTIME 02/15/18 [History] Aspirin 81 mg PO DAILY 11/09/19 [History] Dulaglutide [Trulicity] 1.5 mg SUBCUT MO 11/09/19 [History] Escitalopram Oxalate [Lexapro] 20 mg PO DAILY 11/09/19 [History] Gabapentin [Neurontin] 100 mg PO TID 11/09/19 [History] Insulin Aspart [Insulin Aspart Flexpen] 2 unit SUBCUT DAILY PRN 11/09/19 [History] Loperamide HCl [Loperamide] 2 tab PO ASDIRECTED PRN 11/09/19 [History] Magnesium Hydroxide [Milk of Magnesia] 30 ml PO ASDIRECTED PRN 11/09/19 [History] Pantoprazole [ProTONIX] 40 mg PO QAM 11/09/19 [History] metFORMIN [Glucophage] 1,000 mg PO QAM 11/09/19 [History] metFORMIN [Glucophage] 500 mg PO DAILY 11/09/19 [History] Past Medical History HEENT History: Reports: Cataract, Other (See Below) Other HEENT History: Diabetic retinopathy Cardiovascular History: Reports: Hypertension, PVD Gastrointestinal History: Reports: GERD Genitourinary History: Reports: Other (See Below) Other Genitourinary History: CKD stage 3, chronic patrick Musculoskeletal History: Reports: Amputation, Osteoporosis Neurological History: Reports: Neuropathy, Peripheral, Other (See Below) Other Neuro History: Dementia Psychiatric History: Reports: Anxiety, Dementia Endocrine/Metabolic History: Reports: Diabetes, Type II Hematologic History: Reports: Anemia 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 - Past Surgical History HEENT Surgical History: Reports: Laser Surgery Cardiovascular Surgical History: Reports: Other (See Below) Other Cardiovascular Surgeries/Procedures: Angioplasty GI Surgical History: Reports: None Endocrine Surgical History: Reports: None Musculoskeletal Surgical History: Reports: Amputation, Other (See Below) Other Musculoskeletal Surgeries/Procedures:: LBKA Social & Family History - Family History Family Medical History: Noncontributory Cardiac: Reports: Aneurysm Oncologic: Reports: Breast - Caffeine Use Caffeine Use: Reports: Coffee, Soda Caffeine Use Comment: unavailable ED ROS GENERAL - Review of Systems Review Of Systems: Comprehensive ROS is negative, except as noted in HPI. ED EXAM, GENERAL - Physical Exam Exam: See Below Free Text/Narrative:: Alert and appropriate upon her arrival per ambulance. She denies any problems or concerns asking me why she is here. I advised her of the previous laboratory findings and that she was sent here for retesting evaluation of her status. She shows no evidence of distress, conversing freely with me holding Kamlesh in her arms. She has her baseball style On, and unwilling to let me remove it. Glasses are in place. No icterus no injection with very limited examination as she denies any need, "I can see fine" No tenderness to the scalp or facial features with soft supple neck no lymphadenopathy. Somewhat dry tongue, not opening mouth fully. Bilateral cerumen impactions noted Thorax is somewhat diminished but clear likely due to her inspiratory effort. There is a large sebaceous cyst to the left of the inferior scapula that is mobile, and palpates with a soft center. It has the appearance of a port but does not have a firm ring nor any vascular tubing underlying. Cardiac is distant S1-S2. Abdomen is soft bowel sounds are normal to mildly hyperactive with no tinkling nor sounds consistent with obstruction. No tenderness to the pelvic girdle no tenderness to the lower right extremity with motion intact. There is an amputation of the left lower below-knee with no complaints to palpation. When instructed we would be testing her urine and blood sample obtained to confirm or rule out her renal failure and hyperkalemia she adamantly denies any needles. When advised the need for testing and if normal findings she would be transported back to the nursing facility she again states "no, no, no" while pointing her finger at me. After review of her urinalysis it appears to be a chronic indwelling catheter findings with culture pending, I placed calls to update her power of estate attorney Mrs. Doris Carpenter, in [facility] [place]. She is listed as emergency contact responsible democrat with the [employer]OPING [employer]INE OPERATOR, healthcare primary financial contact. Lengthy discussion in detail on Juliana's status as she is denying treatment and with discussion between us in the emergency department, as well as Cassandra Cortes, director report in the aspect if her potassium was elevated it may cause cardiac arrest leading to . When explained to Juliana that hyperkalemia is very serious and it could stop her heart her response is "then I would be ". We agree with her as rotation of that stating that her record says CPR should be performed to which she denies wanting CPR or any life prolonging activities. All of this information was relayed via phone to . Doris Carpenter. Power of estate attorney response at 1132 today was historically Juliana had been DNR upon her arrival and admission to the [facility]. After residing there short-term she enjoyed the facility and felt that she would like to have a longer life, to which her DNR status was then changed to full code. In the past months with the COVID 19 restrictions power of estate attorney has not been able to visit but is maintained communication. She states that in this time Juliana has voiced concern that is she is getting older, at the age of 78, not really wanting to be in her 80s with her associated health status, that she would likely change her status to DNR. She states she does not want CPR performed, continues to refuse any blood draw for analysis, nor any intervention at this time. Paperwork process from the facility to the power of estate attorney is being filed at this time for signatures, then will be faxed for my signature as the provider who was in the direct discussion with both Juliana and Doris Figueredoaracely. Course - Vital Signs Last Recorded V/S: Last Vital Signs Temp 36.4 C 11/09/19 11:07 Pulse 62 11/09/19 11:07 Resp 18 11/09/19 11:07 BP 161/82 H 11/09/19 11:07 Pulse Ox 94 L 11/09/19 11:07 - Orders/Labs/Meds Orders: Active Orders 24 hr Category Date Time Status CBC WITH AUTO DIFF [HEME] Urgent Lab 11/09/19 10:54 Ordered COMPREHENSIVE METABOLIC PN,CMP [CHEM] Stat Lab 11/09/19 10:54 Ordered CULTURE BLOOD [BC] Stat Lab 11/09/19 10:55 Ordered CULTURE BLOOD [BC] Stat Lab 11/09/19 10:55 Ordered CULTURE URINE [RM] Stat Lab 11/09/19 11:00 Received LACTIC ACID [CHEM] Stat Lab 11/09/19 10:55 Ordered Blood Culture x2 Reflex Set [OM.PC] Stat Oth 11/09/19 10:54 Ordered Labs: Laboratory Tests 11/09/19 Range/Units 11:00 Specimen Type Urinfol Urine Color Light yellow (YELLOW) Urine Appearance Slightly cloudy H (CLEAR) Urine pH 7.0 (5.0-9.0) Ur Specific [place] 1.015 (1.005-1.030) Urine Protein 30 H (NEGATIVE) mg/dL Urine Glucose (UA) Negative (NEGATIVE) mg/dL Urine Ketones Negative (NEGATIVE) mg/dL Urine Occult Blood Small H (NEGATIVE) Urine Nitrite Negative (NEGATIVE) Urine Bilirubin Negative (NEGATIVE) Urine Urobilinogen 0.2 (0.2-1.0) E.U./dL Ur Leukocyte Esterase Moderate H (NEGATIVE) Urine RBC 0-5 (0-5) /HPF Urine WBC >100 H (0-5) /HPF Ur Epithelial Cells Few /LPF Amorphous Sediment Moderate H (0/HPF) /HPF Urine Bacteria Many H (NONE TO FEW) /HPF Departure - Departure Time of Disposition: 13:29 Disposition: DC/Tfer to [facility] 03 Condition: Fair Clinical Impression: Chronic indwelling Patrick catheter, DNR (do not resuscitate) discussion, DNR no code (do not resuscitate) - Discharge Information *PRESCRIPTION DRUG MONITORING PROGRAM REVIEWED*: Not Applicable *COPY OF PRESCRIPTION DRUG MONITORING REPORT IN PATIENT JOE: Not Applicable Referrals: Kelly Guido NP [Primary Care Provider] - Forms: ED Department Discharge Additional Instructions: After discussion with Juliana, power of estate attorney, and updating [facility]. CODE STATUS will be changed to DNR. Transportation is being arranged for her return to the care center. Duration of medications will be as current orders. Treatment of urine will be based on culture when it finalizes this week. Phone contact with Elodia Friedman as well as Aly Nguyen were made and discussed Juliana status, in which they were in full agreement. Follow-up as needed. Sepsis Event Note (ED) - Focused Exam Vital Signs: Vital Signs Temp Pulse Resp BP Pulse Ox 11/09/19 11:07 36.4 C 62 18 161/82 H 94 L - Problem List & Annotations (1) DNR (do not resuscitate) discussion SNOMED Code(s): 278748724, 738869757 Code(s): Z71.89 - OTHER SPECIFIED COUNSELING Status: Acute Priority: High Current Visit: Yes (2) DNR no code (do not resuscitate) Status: Acute Priority: High Current Visit: Yes (3) Chronic indwelling Patrick catheter SNOMED Code(s): 244488459 Code(s): Z97.8 - PRESENCE OF OTHER SPECIFIED DEVICES Status: Chronic Priority: Medium Current Visit: Yes Annotation/Comment:: Awaiting culture on urine to determine if treatment is warranted. (4) Ceruminosis SNOMED Code(s): 944731075 Code(s): H61.20 - IMPACTED CERUMEN, UNSPECIFIED EAR Status: Suspected Priority: Medium Current Visit: Yes Qualifiers: Laterality: bilateral Qualified Code(s): H61.23 - Impacted cerumen, bilateral - Problem List Review Problem List Initiated/Reviewed/Updated: Yes - My Orders Last 24 Hours: My Active Orders 11/09/19 10:54 CBC WITH AUTO DIFF [HEME] Urgent COMPREHENSIVE METABOLIC PN,CMP [CHEM] Stat Blood Culture x2 Reflex Set [OM.PC] Stat 11/09/19 10:55 CULTURE BLOOD [BC] Stat CULTURE BLOOD [BC] Stat LACTIC ACID [CHEM] Stat 11/09/19 11:00 CULTURE URINE [RM] Stat - Assessment/Plan Last 24 Hours: My Active Orders 11/09/19 10:54 CBC WITH AUTO DIFF [HEME] Urgent COMPREHENSIVE METABOLIC PN,CMP [CHEM] Stat Blood Culture x2 Reflex Set [OM.PC] Stat 11/09/19 10:55 CULTURE BLOOD [BC] Stat CULTURE BLOOD [BC] Stat LACTIC ACID [CHEM] Stat 11/09/19 11:00 CULTURE URINE [RM] Stat Plan: After discussion with Juliana power of estate attorney, and updating [facility]. CODE STATUS will be changed to DNR. Transportation is being arranged for her return to the care center. Duration of medications will be as current orders. Treatment of urine will be based on culture when it finalizes this week. Phone contact with Elodia Friedman as well as Aly Nguyen were made and discussed Juliana status, in which they were in full agreement. Follow-up as needed.
== END 2019-11-09 13:45 ==
LOC: KA.ED 10:40
DX: Z43.6 Encounter for attention to other artificial openings of urinary tract (principal); Z66 Do not resuscitate; I10 Essential (primary) hypertension; E11.319 Type 2 diabetes mellitus with unspecified diabetic retinopathy without macular edema; E11.51 Type 2 diabetes mellitus with diabetic peripheral angiopathy without gangrene; E11.22 Type 2 diabetes mellitus with diabetic chronic kidney disease; K21.9 Gastro-esophageal reflux disease without esophagitis; F41.9 Anxiety disorder, unspecified; F03.90 Unspecified dementia, unspecified severity, without behavioral disturbance, psychotic disturbance, mood disturbance, and anxiety; Z89.512 Acquired absence of left leg below knee; Z91.09 Other allergy status, other than to drugs and biological substances; Z79.82 Long term (current) use of aspirin; Z79.4 Long term (current) use of insulin; Z79.899 Other long term (current) drug therapy
CPT/HCPCS: 81001; 87086; 87088; 99284